=== PATIENT | male | born 1980 | race Caucasian/White ===

== ENCOUNTER 2019-11-16 23:31 | Emergency (ER) | payer OTHER ==
[~2019-11-16] VITALS: Ht 185.4 cm; Wt 79.4 kg
[2019-11-16] MEDS ORDERED: BUSPIRONE HCL10 MG PO (23:42)
[2019-11-17] MEDS ORDERED: HYDROCODON-ACE1 EAC8 PO (01:31)
[2019-11-17 01:38] VITALS: BP 132/85
== END 2019-11-17 01:40 | disposition home or self-care (01) ==
LOC: M.ERS 23:31
DX: S01.01XA Laceration without foreign body of scalp, initial encounter (principal); S16.1XXA Strain of muscle, fascia and tendon at neck level, initial encounter; Y04.0XXA Assault by unarmed brawl or fight, initial encounter; Y93.89 Activity, other specified; Y92.89 Other specified places as the place of occurrence of the external cause; Y99.8 Other external cause status

== ENCOUNTER 2019-11-21 22:01 | Inpatient (IN) | payer OTHER ==
[~2019-11-21] VITALS: Ht 185.4 cm; Wt 83.9 kg
[~2019-11-21 22:01] MED LIST: BUSPIRONE HCL10 MG PO; HYDROCODON-ACE1 EAC8 PO
[2019-11-21 22:18] VITALS: BP 138/78
[2019-11-21] MEDS ORDERED: AMOXICILLIN 50500 MG PO (22:24)
[2019-11-21] MEDS ORDERED: VENLAFAXINE HCL75 M1 PO (22:24)
[2019-11-21 23:13] LABS: ABSOLUTE EOSINOPHILS 0.6 thou/uL (0.0-0.7); ABSOLUTE LYMPHOCYTES 2.1 thou/uL (0.8-5.3); ABSOLUTE MONOCYTES 0.6 thou/uL (0.0-1.2); ABSOLUTE NEUTROPHILS 8.2 thou/uL (1.6-8.1); BASOPHILS 0.2 %; EOSINOPHILS 5.4 %; HEMATOCRIT 41.7 % (42.0-52.0); HEMOGLOBIN 14.5 gm/dL (14.0-18.0); MCH 31.7 pg (26.0-34.0); MCHC 34.9 g/dL (28.0-37.0); MCV 90.8 fL (80.0-100.0); MONOCYTES 5.3 %; MPV 8.2 fl. (7.2-11.1); NUCLEATED RBCS 0 /100WBC; PLATELET COUNT* 273 thou/uL (150-400); POLYS 71.1 %; RBC 4.59 mil/uL (4.50-6.00); RDW-CV 13.5 % (10.5-14.5); WBC 11.5 thou/uL (4.0-11.0)
[2019-11-21 23:20] LABS: CALCIUM 9.4 mg/dL (8.5-10.1); POTASSIUM 3.2 mmol/L (3.5-5.1)
[2019-11-21 23:25] LABS: ALBUMIN 3.9 g/dL (3.4-5.0); TOTAL BILIRUBIN 0.2 mg/dL (<0.1-1.0); TOTAL PROTEIN 8.9 g/dL (6.4-8.2)
[2019-11-22] VITALS (7 sets, daily range): BP systolic 105–138; BP diastolic 72–78
[2019-11-22 10:00] LABS: ABSOLUTE EOSINOPHILS 0.7 thou/uL (0.0-0.7); ABSOLUTE LYMPHOCYTES 2.5 thou/uL (0.8-5.3); ABSOLUTE MONOCYTES 0.6 thou/uL (0.0-1.2); ABSOLUTE NEUTROPHILS 4.8 thou/uL (1.6-8.1); BASOPHILS 0.3 %; EOSINOPHILS 7.8 %; HEMATOCRIT 39.3 % (42.0-52.0); HEMOGLOBIN 13.7 gm/dL (14.0-18.0); LYMPHOCYTES 28.9 %; MCH 31.8 pg (26.0-34.0); MCHC 34.9 g/dL (28.0-37.0); MCV 91.4 fL (80.0-100.0); MONOCYTES 6.9 %; MPV 8.5 fl. (7.2-11.1); NUCLEATED RBCS 0 /100WBC; PLATELET COUNT* 242 thou/uL (150-400); POLYS 56.1 %; RDW-CV 13.6 % (10.5-14.5); WBC 8.6 thou/uL (4.0-11.0)
[2019-11-22 10:17] LABS: ALBUMIN 3.3 g/dL (3.4-5.0); CALCIUM 8.8 mg/dL (8.5-10.1); POTASSIUM 3.7 mmol/L (3.5-5.1); TOTAL BILIRUBIN 0.2 mg/dL (<0.1-1.0); TOTAL PROTEIN 7.8 g/dL (6.4-8.2)
[2019-11-23 07:10] VITALS: BP 113/78
[2019-11-23] MEDS ORDERED: CLEOCIN HCL300 MG PO (08:12)
[2019-11-23] MEDS ORDERED: HYDROCODON-ACE1 EAC8 PO (08:12)
[2019-11-23 08:22] VITALS: BP 113/78
[2019-11-23 09:48] VITALS: BP 113/78
== END 2019-11-23 09:48 | disposition home or self-care (01) | DRG 137 ==
LOC: M.ERS 22:01 → M.TBA-ER 23:50 → M.3W 11-22 07:04
PROVIDERS: Emergency Medicine Emergency Medical Services; Nurse Practitioner; ADMIT Internal Medicine
PROC: 0W950ZZ Drainage of Lower Jaw, Open Approach (ICD-10-PCS; principal; 2019-11-21)
DX: K04.7 Periapical abscess without sinus (principal); L03.211 Cellulitis of face; F41.9 Anxiety disorder, unspecified; S01.01XA Laceration without foreign body of scalp, initial encounter; S06.9X0A Unspecified intracranial injury without loss of consciousness, initial encounter; X58.XXXA Exposure to other specified factors, initial encounter; Y93.89 Activity, other specified; Y92.89 Other specified places as the place of occurrence of the external cause; Y99.8 Other external cause status; Z79.899 Other long term (current) drug therapy